=== PATIENT | female | born 1970 | race Caucasian/White ===

== ENCOUNTER 2020-01-05 10:37 | Outpatient (NON) | payer OTHER, SELFPAY ==
[2020-01-05 22:40] LABS: SARS-CoV-2 RNA PCR Negative
== END 2020-01-05 10:38 ==
PROVIDERS: PCP Nurse Practitioner Family; Visit Provider Nurse Practitioner Family
DX: Z20.828 Contact with and (suspected) exposure to other viral communicable diseases (principal); R05 Cough
CPT/HCPCS: 87635; C9803; U0003

== ENCOUNTER 2023-02-25 08:15 | Emergency (ER) | payer BC, SELFPAY ==
[2023-02-25 08:25] VITALS: BP 131/79; PULSE 99; RESP 18; TEMP 37.3; O2SAT 98
--- NOTE | 2023-02-25 08:55 | ED.GENADULT ---
HPI - General Adult General Chief complaint: Upper Respiratory Infection Stated complaint: throat/contusion right elbow Source: patient Mode of arrival: ambulatory Limitations: no limitations History of Present Illness HPI narrative: Patient presents for evaluation of sore throat for the last 13 days. She has some fatigue and bilateral otalgia. No fever, chills, nausea, vomiting, diarrhea, cough, shortness of breath. She recently spent time with some children currently have strep. She is also concerned about some bruising to her right elbow. [place] and hit her elbow after going down a slide. No descriptive quality or numerical rating to the pain. Denies loss of range of motion. Related Data Home Medications Medication Instructions Recorded Confirmed atorvastatin 10 mg tablet mg 02/25/23 bupropion HCl 300 mg 24 hr tablet, mg PO 02/25/23 extended release estradiol 0.05 mg/24 hr semiweekly 02/25/23 transdermal patch Allergies Allergy/AdvReac Type Severity Reaction Status Date / Time No Known Allergies Allergy Unverified 08/19/16 17:11 Review of Systems Review of Systems: CONSTITUTIONAL: Denies fever, chills, or sweats. EYES: Denies visual changes, redness, or discharge. ENT: Reports sore throat and bilateral otalgia. Denies rhinorrhea and congestion, CARDIOVASCULAR: Denies chest pain, palpitations, or edema. RESPIRATORY: Denies cough or dyspnea. GASTROINTESTINAL: Denies abdominal pain, nausea, vomiting, or diarrhea. GENITOURINARY: Denies dysuria or hematuria. SKIN:Reports bruising to right elbow. Denies rash or itching. MUSCULOSKELETAL: Reports right elbow pain. Denies back pain, or myalgia. NEUROLOGIC: Denies headache, numbness, dizziness, or weakness. PSYCHIATRIC: Denies anxiety or depression. [facility]LY [facility] Past Medical History Medical History Anxiety Hyperlipidemia Surgical History Surgical History No pertinent past surgical history Family History Family History Mother Family history non-contributory Social History Social History Gender identity (if verbalized by the patient): Female Sexual Orientation (if Verbalized by the Patient): Straight or Heterosexual Spiritual care concerns: No Exam Narrative: GENERAL: Well-appearing, well-nourished, and in no acute distress. HEAD: Normocephalic, atraumatic. EYES: PERRLA and EOMI. ENT: Nares clear, no rhinorrhea or epistaxis. Mucous membranes moist. Posterior pharyngeal erythema without exudate. Uvula is midline. Bilateral TMs pearly gavin nonbulging NECK: Supple. No adenopathy or masses. No carotid bruits or JVD CHEST: Clear to auscultation. No respiratory distress. No wheezes rales or rhonchi HEART: Regular rate and rhythm. No murmur heard. Normal peripheral pulses. ABDOMEN: Soft, nontender, nondistended, normal active bowel sounds. EXTREMITIES:Full ROM of right elbow. No crepitus or deformity. No swelling SKIN: Ecchymosis noted to the right elbow. Warm, dry, no rash. NEURO: No focal deficits. Alert and oriented x3. PSYCH: Normal mood and affect. Course Course Emergency Course: This is a 52-year-old female who presented for evaluation of sore throat after recent strep exposure. Rapid strep negative. She requested to be treated with antibiotics in the event that this was a false negative. Amoxicillin sent to her pharmacy. In terms of bruising to the right elbow, she has full range of motion. She declined x-ray. Advised on RICE therapy. Follow-up with primary provider. Go to the ER for worsening symptoms. Patient in agreement plan of care per Level of Care: Express Care Visit Vital Signs Vital signs: Vital Signs Temperature 37.3 C 02/25/23 0
== END 2023-02-25 08:58 | disposition home or self-care (01) ==
PROVIDERS: Emergency Provider Nurse Practitioner
DX: J02.9 Acute pharyngitis, unspecified (principal); S50.01XA Contusion of right elbow, initial encounter; E78.5 Hyperlipidemia, unspecified; F41.9 Anxiety disorder, unspecified; Z79.899 Other long term (current) drug therapy; W22.09XA Striking against other stationary object, initial encounter
CPT/HCPCS: 87081; 87880; 99213; G0463